=== PATIENT | male | born 1990 ===

== ENCOUNTER 2022-12-30 20:46 | Emergency (ER) | payer OTHER ==
[~2022-12-30] VITALS: Ht 172.7 cm; Wt 83.9 kg
[2022-12-30] MEDS ORDERED: IV NORMAL SALINE 1000 ML BAG IV ONE (21:00)
[2022-12-30 21:30] LABS: BASOPHILS % (AUTO) 0.8 % (0.0-2.0); EOSINOPHILS # (AUTO) 0.3 K/uL (0.0-0.7); EOSINOPHILS % (AUTO) 4.4 % (0.0-7.0); HEMATOCRIT 37.4 % (36.7-47.1); LYMPHOCYTES # (AUTO) 2.3 K/uL (0.8-4.8); LYMPHOCYTES % (AUTO) 36.3 % (20.5-51.5); MEAN CORPUSCULAR HEMOGLOBIN 30.1 uug (23.8-33.4); MEAN CORPUSCULAR HGB CONC 35 g/dL (32.5-36.3); MEAN CORPUSCULAR VOLUME 86.5 fL (73.0-96.2); MONOCYTES # (AUTO) 0.5 K/uL (0.1-1.30); MONOCYTES % (AUTO) 7.4 % (0.0-11.0); NEUTROPHILS # (AUTO) 3.3 K/uL (1.8-8.9); NEUTROPHILS % (AUTO) 51.1 % (38.5-71.5); PLATELET COUNT (AUTO) 213 K/uL (152-348); RED BLOOD CELL COUNT(AUTO) 4.32 MIL/uL (4.06-5.63); RED CELL DISTRIBUTION WIDTH 12.8 % (12.1-16.2); WHITE BLOOD COUNT (AUTO) 6.4 K/uL (3.6-10.2)
[2022-12-30 21:38] LABS: DIFFERENTIAL COMMENT 1
[2022-12-30 21:43] LABS: CALCIUM 8.9 mg/dL (8.5-10.1); CARBON DIOXIDE 25 mmol/L (21-32); CHLORIDE 102 mmol/L (98-107); GLUCOSE 399 mg/dL (74-106); POTASSIUM 3.4 mmol/L (3.5-5.1); SODIUM SERUM 134 mmol/L (136-145); UREA NITROGEN, BLOOD 23 mg/dL (7-18)
[2022-12-30 21:54] LABS: BILIRUBIN,DIRECT < 0.1 mg/dL (0.0-0.2); BILIRUBIN,TOTAL 0.4 mg/dL (0.2-1.0)
[2022-12-30 21:55] LABS: ALANINE AMINOTRANSFERASE 14 U/L (16-63); ALBUMIN 3.1 g/dL (3.4-5.0); ALKALINE PHOSPHATASE 145 U/L (50-136); ASPARTATE AMINOTRANSFERASE < 5 U/L (15-37); NT-PRO BNP 18 pg/mL (0-125); TOTAL PROTEIN, SERUM 6.7 g/dL (6.4-8.2)
[2022-12-30 22:12] LABS: SITE, VBG RIGHT RADIAL; VBG BASE EXCESS 0.4 mmol/L (-3-3); VBG HCO3 26.2 mmol/L (22-27); VBG MetHb 0.3 %; VBG O2HB 95.3 %; VBG PCO2 46.6 mmHg (40-52); VBG PH 7.367 (7.31-7.41); VBG PO2 85.3 mmHg (30-50); VENT MODE, VBG ROOOM AIR
[2022-12-31 01:02] LABS: *AMPHETAMINE, URINE NEGATIVE (NEGATIVE); *BARBITURATE, URINE NEGATIVE (NEGATIVE); *BENZODIAZEPINE, URINE POSITIVE (NEGATIVE); *CANNABINOID, URINE NEGATIVE (NEGATIVE); *COCCAINE, URINE NEGATIVE (NEGATIVE); *OPIATE, URINE NEGATIVE (NEGATIVE); *PHENCYCLIDINE SCREEN,URINE NEGATIVE (NEGATIVE); FENTANYL, URINE NEGATIVE (NEGATIVE)
[2022-12-31 01:07] LABS: *BILIRUBIN,URIN NEGATIVE (NEGATIVE); *BLOOD, URINE NEGATIVE (NEGATIVE); *CLARITY,URINE CLEAR (CLEAR); *COLOR,URINE YELLOW (YELLOW); *KETONES,URINE 1+ (NEGATIVE); *PROTEIN,URINE NEGATIVE (NEGATIVE); *UROBILINOGEN,URINE 0.2 E.U./dl (NORMAL); LEUKOCYTE ESTERASE ,URINE NEGATIVE (NEGATIVE); NITRITE, URINE NEGATIVE (NEGATIVE); PH,URINE 5.5 (5.0-8.0)
[2022-12-31 01:09] LABS: UGLUCOSE 2+ (NEGATIVE)
[2022-12-31 01:16] LABS: BACTERIA,URINE FEW /HPF (NONE SEEN); RBC,URINE 0-3 /HPF (0-3); SQUAMOUS EPITHELIAL CELL,UR MODERATE /HPF (NONE SEEN); WBC,URINE NONE SEEN /HPF (0-3)
[2022-12-31] MEDS ORDERED: METF-442 PO (02:55)
[2022-12-31] MEDS ORDERED: IV NS 1000 ML 1,000 ML IV ONE (03:00)
[2022-12-31 03:32] LABS: ETHANOL < 3 MG/DL (0-10)
[2022-12-31 08:21] VITALS: O2SAT 97
== END 2022-12-31 08:52 | disposition short-term general hospital (02) ==
LOC: ER 20:48
DX: R55 Syncope and collapse (principal); E11.9 Type 2 diabetes mellitus without complications; Z79.84 Long term (current) use of oral hypoglycemic drugs
CPT/HCPCS: 80076; 80048; 82009; 82550; 83880; 85025; 84484; 36415; 93005; 99285; 96360; 80320; 80307; 36600 ×2; 81001; 82962; 70450; 96361; J7040 ×2; A4663; G0480